=== PATIENT | male | born 1960 | race Caucasian/White ===

== ENCOUNTER → 2018-08-06 11:44 | Outpatient (CLI) | payer SELFPAY | PROVIDERS: Visit Provider Physician Assistant | DX: R21 Rash and other nonspecific skin eruption (principal) | CPT/HCPCS: 87070; 87077; 87147; 87205 ==

== ENCOUNTER → 2018-08-07 09:36 | Outpatient (CLI) | payer SELFPAY | PROVIDERS: Visit Provider Physician Assistant | DX: R21 Rash and other nonspecific skin eruption (principal) | CPT/HCPCS: 87102 ==

== ENCOUNTER 2023-10-06 12:32 | Emergency (ER) | payer OTHER, MEDICARE, SELFPAY | END 2023-10-06 13:12 | disposition left against medical advice (07) | PROVIDERS: Emergency Provider Emergency Medicine | DX: L08.9 Local infection of the skin and subcutaneous tissue, unspecified (principal) ==

== ENCOUNTER 2023-10-09 16:12 | Emergency (ER) | payer OTHER, SELFPAY ==
[2023-10-09 16:14] VITALS: BP 187/77; PULSE 75; RESP 21; TEMP 36.6; O2SAT 96; BMI 55.6
--- NOTE | 2023-10-09 16:58 | ED.SKABFB ---
HPI - Skin/Abscess/Foreign Bdy <Caron Padgett PA-C - Last Filed: 10/09/23 19:33> General Chief complaint: Skin/Abscess/Foreign Body Stated complaint: infected index finger Time Seen by Provider: 10/09/23 16:29 Source: patient Mode of arrival: Ambulatory Limitations: language barrier History of Present Illness HPI narrative: This is a 63-year-old morbidly obese patient presenting to the ER with concern for persistent left finger inflammation in rash on dorsum of his hand. Patient states he originally sustained a laceration from a clean knife when he was slicing turkey 1 month ago used triple antibiotic ointment over the laceration and ultimately developed a rash and became more inflamed and he had some dry skin and outer layers of skin peeling off of his finger. He went to walk-in clinic 7 days ago for evaluation of this and was placed on doxycycline. He continued to use the triple antibiotic ointment in addition to taking the doxycycline. He sought re-evaluation again 3 days ago as he felt his symptoms were not improving much, and was advised to go to the ER but at that time ended up leaving without being seen after checking in. Today he feels his symptoms have improved slightly, he finished his course of doxycycline this morning. He does acknowledge that he was previously told years ago he may have an allergy to 1 of the antibiotics in triple antibiotic ointment and should not use triple antibiotic ointment. He states the rash and worsening of symptoms around the cut only developed after he started using the triple antibiotic ointment and persisted in using it. He denies any fevers, chills, nausea, vomiting, rash anywhere else on his body or any other symptoms or concerns. He is able to move his finger hand and wrist normally with regular function and is pain-free. Related Data Previous Rx's Medication Instructions Recorded doxycycline hyclate 100 mg capsule 100 mg PO BID #14 caps 10/02/23 Allergies Allergy/AdvReac Type Severity Reaction Status Date / Time No Known Drug Allergies Allergy Unknown Verified 10/06/23 12:02 [NO KNOWN DRUG ALLERGIES] Review of Systems <Caron Padgett PA-C - Last Filed: 10/09/23 19:33> Review of Systems Narrative: See HPI Patient History <Caron Padgett PA-C - Last Filed: 10/09/23 19:33> Social History Smoking Status: Never smoker Smoking Status: Never smoker alcohol intake frequency: holidays/special occasions only Exam <Caron Padgett PA-C - Last Filed: 10/09/23 19:33> Narrative Exam Narrative: GENERAL: [63] year old patient appears stated age. Morbidly obese patient, in mild distress; well-appearing, nontoxic. HEAD: Atraumatic. Normocephalic. EYES: Pupils equal round and reactive. Extraocular motions intact. No scleral icterus. No injection or drainage. ENT: Nose without bleeding, purulent drainage. Airway patent. NECK: Trachea midline. CARDIOVASCULAR: Regular rate and rhythm without murmurs, gallops, or rubs. RESPIRATORY: Clear to auscultation. Breath sounds equal bilaterally. No wheezes, rales, or rhonchi. EXTREMITIES: The left index finger excluding the fingertip is circumferentially inflamed/mildly swollen with mild erythema and dry flaking skin, there is a papular rash superior to this on the dorsum of the left hand and a similar more scattered rash on the patient's anterior wrist on the left. The area is not tender or painful to palpation, there is full active range of motion and strength is intact. There is no tenderness along the palm/dorsum of digit/hand or proximal tendons with palpation. No streaking or discoloration up the arm. There is mild associated heat. No other edema or joint tenderness. BACK: Nontender without deformity or crepitance. No flank tenderness. NEURO: AOx3. SKIN: No rash or erythema of visible areas Initial Vital Signs Initial Vital Signs: Vital Signs Temperature 97.8 F 10/09/23 16:14 Pulse Rate 75 10/09/23 16:14 Respiratory Rate 10/09/23 16:14 Blood Pressure 187/77 H 10/09/23 16:14 Pulse Oximetry 96 10/09/23 16:14 Oxygen Delivery Method Room Air 10/09/23 16:14 <Clifford Mccray DO - Last Filed: 10/15/23 18:00> Initial Vital Signs Initial Vital Signs: Vital Signs Temperature 97.8 F 10/09/23 16:14 Pulse Rate 75 10/09/23 16:14 Respiratory Rate 10/09/23 16:14 Blood Pressure 187/77 H 10/09/23 16:14 Pulse Oximetry 96 10/09/23 16:14 Oxygen Delivery Method Room Air 10/09/23 16:14 Course <Caron Padgett PA-C - Last Filed: 10/09/23 19:33> Vital Signs Vital signs: Vital Signs - 8 hr 10/09/23 16:14 Temperature 97.8 F Pulse Rate 75 Respiratory Rate 21 Blood Pressure 187/77 H Pulse Oximetry 96 Oxygen Delivery Method Room Air <Clifford Mccray DO - Last Filed: 10/15/23 18:00> Vital Signs Vital signs: Vital Signs - 8 hr 10/09/23 16:14 Temperature 97.8 F Pulse Rate 75 Respiratory Rate 21 Blood Pressure 187/77 H Pulse Oximetry 96 Oxygen Delivery Method Room Air MDM - Skin/Abscess/Foreign Bdy <Caron Padgett PA-C - Last Filed: 10/09/23 19:33> Differential Diagnosis Differential diagnosis: Likely abscess of skin or subcutaneous tissue, allergic reaction to drug, cellulitis and contact dermatitis Medical Records Attestation: I reviewed the patient's medical records. [facility] Narrative Medical decision making narrative: This is an otherwise well-appearing obese 63-year-old male with no significant medical history presenting with concern for persistent rash inflammation and redness of his left finger after he sustained a laceration from a knife 4 weeks prior. The previous laceration is well healed and his exam and history are most consistent with a allergic dermatitis 2nd to use of topical antibiotic ointment. Rash/increased inflammation and erythema developed only after using the topical antibiotic ointment. Patient did just finished a 7 day course of doxycycline, discussed the patient with attending physician Dr. Ahn who also examined the patient and he agrees with the assessment and we feel patient would benefit from an additional 3 days of doxycycline. This is prescribed today. Counseled the patient to discontinue use of triple antibiotic ointment now and in the future as he likely has an allergy to 1 of the components, suspect allergy to bacitracin. Advised he can use a hypoallergenic Vaseline based moisturizer over the area to help with the dry skin and keep the area bandaged as needed. The area was not amenable to culture and low suspicion for a persistent infection, no evidence of tendon involvement and function remained intact. Return precautions provided, follow-up plan discussed, all questions answered. Discharge Plan Departure Patient Disposition: Home Clinical Impression: Allergic dermatitis Cellulitis Qualifiers: Site of cellulitis: extremity Site of cellulitis of extremity: finger Laterality: left Qualified Code(s): L03.012 - Cellulitis of left finger Activity Restrictions/Additional Instructions: *You have been diagnosed with [allergic dermatitis, cellulitis] *What to do: *Please continue to take your regular medications as directed. [1 ] New medication prescriptions sent to your pharmacy: [Doxycycline] [ ] New medication written as a paper prescription [ ] No new medications given *Please follow up with your primary care provider in 2-3 days, call for an appointment. Let them know you were seen in the Emergency Department and that we ask that you be seen in follow up. We will electronically transmit a record of today's note if your PCP is in our system. You came in today with concern for persistent rash and redness of your finger and hand after you initially had a laceration of your finger about a month ago. This looks likely to be a allergic dermatitis which I suspect is due to using the triple antibiotic ointment over this area. This should heal well if you stop using the triple antibiotic ointment, I suspect that the offending antibiotic is bacitracin. Please try to avoid using this in the future. You can use other topical antibiotics that do not have bacitracin in them. Because he only had 7 days of doxycycline and the area still a little bit erythematous and inflamed we are also prescribing 3 more days of doxycycline to ensure that your infection is fully treated. You may want to consider an oral antihistamine such as Zyrtec for the next few days which could also help with your symptoms. The area of dry skin on your finger and the rash can be treated with a Vaseline based moisturizing agent which you can get [id number]. Avoid using strong soaps or sent to lotions as this may worsen your symptoms. If you are not improving or are worsening please make sure you seek re-evaluation. If this persists for greater than a week and a half or so longer and is not healing well I would recommend you see dermatology if it worsens seek re-evaluation in the ER if needed or urgent care. I hope that this heals soon as you feel better. *If you do not have a primary care provider please contact the [facility] Resource line at [phone]. They will ask some questions about your medical history and help get you set up with a doctor in the community. *Return to Emergency Department if you should have any new, worsening or concerning symptoms, such as [fever greater than 101 F, shaking chills, worsening pain, persistent vomiting or other bothersome symptoms] Prescriptions: No Action doxycycline hyclate 100 mg capsule 100 mg PO BID Qty: 14 0RF Referrals: Miscellaneous,Doctor, MD [Primary Care Provider] - Stand Alone Forms: Patient Portal/API ED Sign-out <Clifford Mccray, - Last Filed: 10/15/23 18:00> [facility] Dr Mccray Co-Sign Statement: I was available for consultation during this patient's emergency department visit. This chart is signed by myself for administrative purposes only. I did not have direct contact with this patient during this visit. They were seen independently by the APC.
== END 2023-10-09 17:11 | disposition home or self-care (01) ==
PROVIDERS: Emergency Provider Student in an Organized Health Care Education/Training Program
DX: L03.012 Cellulitis of left finger (principal); L30.8 Other specified dermatitis
CPT/HCPCS: 99281; 99283

== ENCOUNTER 2024-03-16 11:49 | Day surgery (SDC) | payer OTHER, SELFPAY ==
--- NOTE | 2024-03-16 12:20 | PM.HP.1 ---
History of Present Illness History of Present Illness Chief complaint: Colonoscopy Narrative: First screening colonoscopy. Asymptomatic PFSH Social History Smoking Status: Never smoker Meds Home Medications and Allergies Home Medications Medication Instructions Recorded Confirmed Type doxycycline hyclate 100 mg capsule 100 mg PO BID #14 caps 10/02/23 10/06/23 Rx Allergies Allergy/AdvReac Type Severity Reaction Status Date / Time No Known Drug Allergies Allergy Unknown Verified 10/06/23 12:02 [NO KNOWN DRUG ALLERGIES] Exam Narrative Exam Narrative: Oropharynx free of lesions Chest clear to auscultation percussion Cardiac exam reveals no S3 or murmur Assessment & Plan Assessment & Plan narrative: For screening colonoscopy. Risks, benefits, alternatives have been explained. Time-Based Coding :: [TOTAL MINUTES] spent with patient and on the chart (including review of chart, obtaining history, exam, reviewing outside data, placing orders, documenting exam and treatment plan, and counseling patient) on [DATE].
--- NOTE | 2024-03-16 12:21 | P.OP.COLON_ITS ---
Operative Date/Time/Diagnoses Date of procedure: 03/16/24 Pre-op diagnosis: See indication and findings Procedure & Clinicians Study performed: Colonoscopy Indications: Screening Surgeon: Tyler Guerrier Procedure Notes Procedure in detail: After informed consent was obtained the patient was placed in left lateral d ecubitus position. Video colonoscope was introduced the rectum slowly advanced cecum. Preparation was good. On slow withdrawal mucosa was carefully examined. The scope was removed. The patient tolerated procedure well. Bleeding none complications none Sedation mac Findings 1. Normal colonoscopy to cecum Patient should have follow-up colonoscopy in 10 years
[2024-03-16 12:23] VITALS: BP 135/71; PULSE 88; RESP 16; TEMP 36.2; O2SAT 95
[2024-03-16 13:14] VITALS: BP 106/59; PULSE 65; RESP 9; TEMP 37.3; O2SAT 92
[2024-03-16 13:19] VITALS: BP 116/70; PULSE 70; RESP 19; O2SAT 97
[2024-03-16 13:24] VITALS: BP 125/80; PULSE 67; RESP 17; TEMP 37.2; O2SAT 96
== END 2024-03-16 13:55 | disposition home or self-care (01) ==
PROVIDERS: PCP Family Medicine; Referring Provider Internal Medicine Gastroenterology; Visit Provider Internal Medicine Gastroenterology
PROC: 0DJD8ZZ Inspection of Lower Intestinal Tract, Via Natural or Artificial Opening Endoscopic (ICD-10-PCS; CPT 45378; principal; 2024-03-16 14:30)
DX: Z12.11 Encounter for screening for malignant neoplasm of colon (principal)
CPT/HCPCS: G0121; J2704